=== PATIENT | male | born 1970 | race Caucasian/White ===

== ENCOUNTER → 2020-10-09 | Outpatient (CLI) | payer OTHER ==
[~2020-10-09] MED LIST: ANAPROX DS550 MG PO; BACTRIM DS 8001 TA1 PO; CIPRO500 MG PO; MOTRIN800 MG PO; PROTONIX40 MG PO; ZANTAC150 MG PO
== END | disposition home or self-care (01) ==
LOC: COVID19 13:27
PROVIDERS: ATTEND Student in an Organized Health Care Education/Training Program
DX: Z20.828 Contact with and (suspected) exposure to other viral communicable diseases (principal)

== ENCOUNTER → 2020-10-14 | Outpatient (CLI) | payer OTHER | END | disposition home or self-care (01) | LOC: COVID19 12:38 | PROVIDERS: ATTEND Nurse Practitioner Family | DX: U07.1 COVID-19 (principal); J02.9 Acute pharyngitis, unspecified ==

== ENCOUNTER → 2020-11-25 | Outpatient (CLI) | payer BC ==
[2020-11-25 09:32] LABS: BASO % 0.3 % (0.0-1.0); EOS # 0.2 10*3/uL (0.0-0.4); EOS % 3.2 % (1.0-4.0); HEMATOCRIT 43.6 % (42.0-52.0); LYMPH # 1.7 10*3/uL (1.3-4.4); LYMPH % 26.2 % (27.0-41.0); MEAN CELL VOLUME 87.9 fl (80.0-94.0); MEAN CORPUSCULAR HGB 29.6 pg (27.0-31.0); MEAN CORPUSCULAR HGB CONC 33.7 g/dl (33.0-37.0); MEAN PLATELET VOLUME 8.6 fl (9.6-12.3); MONO # 0.4 10*3/uL (0.1-1.0); MONO % 5.7 % (3.0-9.0); NEUT # 4.2 10*3/uL (2.3-7.9); NEUT % 64.4 % (47.0-73.0); PLATELET COUNT AUTOMATED 276 10*3/uL (130-400); RED BLOOD COUNT 4.96 10*6/uL (4.50-5.90); RED CELL DISTRI WIDTH 12.6 % (0-14.5); WHITE BLOOD COUNT 6.5 10*3/uL (4.8-10.8)
[2020-11-25 09:57] LABS: ALBUMIN 3.9 gm/dl (3.1-4.5); BUN 17 mg/dl (7-24); CHLORIDE 111 mmol/L (98-107); POTASSIUM 4.1 mmol/L (3.5-5.1); SODIUM 143 mmol/L (136-145)
[2020-11-25 10:10] LABS: ALKALINE PHOSPHATASE 55 U/L (45-117); CHOLESTEROL 153 mg/dL (<200); CREATININE 1.29 mg/dL (0.70-1.30); HDL CHOLESTEROL 34 mg/dl (40-60); LDL CHOLESTEROL 58 mg/dL (9-159); SGOT/AST 11 IU/L (3-35); SGPT/ALT 35 U/L (12-78); TOTAL PROTEIN 7.1 gm/dL (6.4-8.2); TRIGLYCERIDES 305 mg/dl (<150); VLDL CHOLESTEROL 61 mg/dL (6-40)
== END | disposition home or self-care (01) ==
LOC: LAB 09:06
PROVIDERS: ATTEND Nurse Practitioner Family
DX: Z00.00 Encounter for general adult medical examination without abnormal findings (principal)

== ENCOUNTER 2021-06-19 20:07 | Emergency (ER) | payer OTHER, BC ==
[2021-06-19] MEDS ORDERED: Motrin,Rufen800 MG PO (22:22)
[2021-06-19] MEDS ORDERED: CYCLOBENZAPRINE5 M3 PO (22:22)
== END 2021-06-19 22:12 | disposition home or self-care (01) ==
LOC: ED 20:07
DX: S39.012A Strain of muscle, fascia and tendon of lower back, initial encounter (principal); Z91.040 Latex allergy status; Z79.899 Other long term (current) drug therapy; V89.2XXA Person injured in unspecified motor-vehicle accident, traffic, initial encounter; Y93.89 Activity, other specified; Y92.89 Other specified places as the place of occurrence of the external cause; Y99.8 Other external cause status